=== PATIENT | female | born 1965 | race Asian ===

== ENCOUNTER 2020-08-30 17:28 | Emergency (ER) | payer OTHER ==
[2020-08-30 17:40] VITALS: BP 124/73; PULSE 78; TEMP 98; BMI 30.2
[2020-08-30] MEDS ORDERED: FAMOTIDINE 20 MG/50 ML IVPB 20 MG/50 ML MG IVPB ONE ×2 (18:16→18:25)
[2020-08-30] MEDS ORDERED: ONDANSETRON 4 MG/2 ML VIAL IVPUSH ONE (18:16)
[2020-08-30] MEDS ORDERED: ACETAMINOPHEN 1000 MG/100 ML VIAL (NON FORMULARY) IVPB ONE (18:16)
[2020-08-30] MEDS ORDERED: SODIUM CHLORIDE 1,000 ML IV STA (18:16)
[2020-08-30] MEDS ORDERED: ONDANSETRON 4 MG/2 ML VIAL ONE (18:25)
[2020-08-30] MEDS ORDERED: ACETAMINOPHEN INJECTION 100 ML IVPB ONE (18:25)
[2020-08-30 18:36] LABS: BASO % 0.6 % (0-2.0); EOS % 4.3 % (0-4.5); HEMATOCRIT 36.6 % (32.4-45.2); HEMOGLOBIN 12.3 GM/dl (10.7-15.3); LYMPH % 27.8 % (8-40); MCH 27.3 pg (25.7-33.7); MCHC 33.6 g/dl (32.0-36.0); MEAN CELL VOLUME 81.3 fl (80-96); MEAN PLT VOLUME 9.1 fl (7.5-11.1); MONO % 8.4 % (3.8-10.2); NEUT % 58.9 % (42.8-82.8); PLATELET COUNT 201 10^3/uL (134-434); RDW 14.1 % (11.6-15.6); WHITE BLOOD COUNT 8.9 K/mm3 (4.0-10.8)
[2020-08-30 18:49] LABS: ALBUMIN 3.4 g/dl (3.4-5.0); ALK PHOS 71 U/L (45-117); ANION GAP 8 MMOL/L (8-16); BILIRUBIN,TOTAL 0.5 mg/dl (0.2-1); CHLORIDE 102 mmol/L (98-107); CO2 26 mmol/L (21-32); CREATININE 0.7 mg/dl (0.55-1.3); GLUCOSE,RANDOM 81 mg/dl (74-106); SGOT/AST 24 U/L (15-37); SGPT/ALT 26 U/L (13-61); SODIUM 136 mmol/L (136-145); TOT PROT 6.2 g/dl (6.4-8.2)
[2020-08-30 19:50] LABS: LIPASE 178 U/L (73-393)
== END 2020-08-30 19:37 | disposition home or self-care (01) ==
LOC: FER 17:28
PROC: 3E033NZ Introduction of Analgesics, Hypnotics, Sedatives into Peripheral Vein, Percutaneous Approach (ICD-10-PCS; principal; 2020-08-30)
PROC: 3E033GC Introduction of Other Therapeutic Substance into Peripheral Vein, Percutaneous Approach (ICD-10-PCS; 2020-08-30)
PROC: 3E0337Z Introduction of Electrolytic and Water Balance Substance into Peripheral Vein, Percutaneous Approach (ICD-10-PCS; 2020-08-30)
DX: R10.13 Epigastric pain (principal); R19.7 Diarrhea, unspecified
CPT/HCPCS: 36415; 71045-TC-FY; 80053; 81003; 81015; 82550; 83690; 84484; 85025; 87086; 93005; 99285-25; J0131

== ENCOUNTER 2022-02-07 15:50 | Emergency (ER) | payer OTHER ==
[2022-02-07 16:09] VITALS: BP 116/70; PULSE 80; RESP 18; TEMP 98.5; BMI 31.7
[2022-02-07] MEDS ORDERED: IBUPROFEN 600 MG TABLET (FP) PO ONE ×2 (16:26→16:33)
== END 2022-02-07 16:44 | disposition home or self-care (01) ==
LOC: FER 15:50
DX: J09.X2 Influenza due to identified novel influenza A virus with other respiratory manifestations (principal); R05.1 Acute cough; R09.81 Nasal congestion; J02.9 Acute pharyngitis, unspecified; J06.9 Acute upper respiratory infection, unspecified
CPT/HCPCS: 0241U-QW; 99283-25

== ENCOUNTER 2023-04-06 09:58 | Emergency (ER) | payer OTHER ==
[2023-04-06 10:14] VITALS: BP 111/68; PULSE 72; RESP 18; TEMP 97.8; BMI 31.7
[2023-04-06] MEDS ORDERED: IBUPROFEN 400 MG TABLET (FP) PO ONE ×2 (10:31→10:42)
== END 2023-04-06 11:44 | disposition home or self-care (01) ==
LOC: FER 09:58
DX: M25.532 Pain in left wrist (principal); M25.432 Effusion, left wrist; M79.602 Pain in left arm
CPT/HCPCS: 73110-TC-LT-FY; 93005; 99284-25